=== PATIENT | female | born 1950 | race Caucasian/White ===

== ENCOUNTER → 2020-12-02 | Outpatient (CLI) | payer OTHER, MEDICARE | LOC: RAD 12:53 | PROVIDERS: ATTEND Pediatrics | DX: R06.02 Shortness of breath (principal) ==

== ENCOUNTER → 2020-12-31 | Outpatient (CLI) | payer OTHER, MEDICARE ==
[2020-12-31 11:35] LABS: CREATININE 0.9 mg/dL (0.6-1.0)
== END ==
LOC: CAT 10:29
PROVIDERS: ATTEND Pediatrics
DX: R06.02 Shortness of breath (principal)